=== PATIENT | female | born 1985 | race American Indian/Alaskan Native ===

== ENCOUNTER 2018-09-15 23:28 | Outpatient (CLI) | payer MEDICAID ==
[2018-09-16 00:11] VITALS: BP 122/65
[2018-09-16] MEDS ORDERED: PERCOCET 5/325 PO ONE (01:12)
== END 2018-09-16 01:23 | disposition home or self-care (01) ==
LOC: TRG 23:28
PROVIDERS: ATTEND Obstetrics & Gynecology
DX: O47.1 False labor at or after 37 completed weeks of gestation (principal); O10.013 Pre-existing essential hypertension complicating pregnancy, third trimester; Z3A.39 39 weeks gestation of pregnancy
CPT/HCPCS: 59025

== ENCOUNTER 2018-09-16 07:14 | Inpatient (IN) | payer MEDICAID ==
[2018-09-16] MEDS ORDERED: XYLOCAINE 2% INFILTRATI NR (08:01)
[2018-09-16] MEDS ORDERED: SUBLIMAZE IV PRN (08:01)
[2018-09-16] MEDS ORDERED: BRETHINE SUB-Q PRN (08:01)
[2018-09-16] MEDS ORDERED: BRETHINE IVP PRN (08:01)
[2018-09-16] MEDS ORDERED: LACTATED RINGERS 1,000 ML ONE (08:23)
[2018-09-16 08:30] LABS: Hematocrit 35.1 % (30.3-42.9); Hemoglobin 12.1 gm/dl (10.1-14.3); Mean Corpuscular HGB Conc 34 % (30-34); Mean Corpuscular Volume 93 fl (79-97); Platelet Count 222 K/mm3 (140-440); Red Blood Count 3.79 M/mm3 (3.65-5.03); Red Cell Distribution Width 12.2 % (13.2-15.2)
[2018-09-16] MEDS ORDERED: MINERAL OIL ONE (08:45)
[2018-09-16] MEDS ORDERED: PITOCin/NS 30 UNIT/500ML 30 UNITS/500 ML BAG IV SCH (09:00)
[2018-09-16] MEDS ORDERED: AMPICILLIN/NS 2 GM/100 ML 2 GM/100 ML BAG IV ONE (09:00)
[2018-09-16] MEDS ORDERED: LACTATED RINGERS 1,000 ML IV SCH (09:00)
[2018-09-16] MEDS ORDERED: PITOCin/NS 20 UNIT/1000ML DRIP 20 UNITS/1,000 ML BAG IV SCH ×2 (09:00→13:00)
[2018-09-16] MEDS ORDERED: NARCAN 2 MG/2 ML IV PRN (09:07)
--- NOTE | 2018-09-16 09:07 | Anesthesia Consultation ---
Anesthesia Consult and Med Hx Date of service: 09/16/18 - Airway Anesthetic Teeth Evaluation: Good ROM Head & Neck: Adequate Mental/Hyoid Distance: Adequate Mallampati Class: Class II Intubation Access Assessment: Probably Good - Pre-Operative Health Status ASA Pre-Surgery Classification: ASA2 Proposed Anesthetic Plan: Epidural, Spinal - Pulmonary Hx Asthma: No - Cardiovascular System Hx Hypertension: Yes - Central Nervous System Hx Seizures: No Hx Psychiatric Problems: No - Endocrine Hx Renal Disease: No Hx Hypothyroidism: No Hx Hyperthyroidism: No - Hematic Hx Anemia: No Hx Sickle Cell Disease: No - Other Systems Hx Alcohol Use: No
[2018-09-16] MEDS ORDERED: fentaNYL-BUPIV 2 MCG/ML-0.125% 200 MCG/100 ML BAG EPIDURAL SCH (10:00)
[2018-09-16 12:24] LABS: Bilirubin,Urine NEG (Negative); Blood,Urine SM (Negative); Color,Urine Yellow (Yellow); Mucus,Urine 1+ /HPF; Protein,Urine <15 mg/dL mg/dL (Negative); Urobilinogen,Urine < 2.0 mg/dL (<2.0)
[2018-09-16] MEDS ORDERED: AMPICILLIN/NS 1 GM/50 ML 1 GM/50 ML BAG IV SCH (12:30)
[2018-09-16] MEDS ORDERED: PERCOCET 5/325 PO PRN (12:32)
[2018-09-16] MEDS ORDERED: LANSINOH TP PRN (12:32)
[2018-09-16] MEDS ORDERED: PHENERGAN PO PRN (12:32)
[2018-09-16] MEDS ORDERED: DULCOLAX PR PRN (12:32)
[2018-09-16] MEDS ORDERED: NORCO 5/325 PO PRN (12:32)
[2018-09-16] MEDS ORDERED: MILK OF MAGNESIA PO PRN (12:32)
[2018-09-16] MEDS ORDERED: TORADOL IV PRN (12:32)
[2018-09-16] MEDS ORDERED: TUCKS PAD TP PRN (12:32)
[2018-09-16] MEDS ORDERED: TYLENOL PO PRN (12:32)
[2018-09-16] MEDS ORDERED: PHENERGAN PR PRN (12:32)
[2018-09-16] MEDS ORDERED: ZOFRAN IV PRN (12:32)
[2018-09-16] MEDS ORDERED: BENADRYL PO PRN (12:32)
[2018-09-16 12:35] LABS: Amphetamine Screen,Urine PRESUMPTIVE NEGATIVE; Benzodiazepines Screen,Urine PRESUMPTIVE NEGATIVE; Cannabinoid Screen,Urine PRESUMPTIVE NEGATIVE; Cocaine Screen,Urine PRESUMPTIVE NEGATIVE; Methadone Screen,Urine PRESUMPTIVE NEGATIVE; Opiate Screen,Urine PRESUMPTIVE NEGATIVE
--- NOTE | 2018-09-16 12:41 | History and Physical Report ---
History of Present Illness Date of examination: 09/16/18 Date of admission: 09/16/18 07:58 Chief complaint: contractions History of present illness: This is a 33 yo at 38 weeks came for one appt at 38 weeks. Poor care. Here for contractions. Patient was noted to be 2cm and progressed to 6cm and was admitted. GBS unknown Past History Past Medical History: denies: no pertinent history Past Surgical History: no surgical history Family/Genetic History: diabetes, hypertension Social history: single, smoking. denies: alcohol abuse, prescription drug abuse - Obstetrical History Expected Date of Delivery: 10/02/18 Actual Gestation: 37 Week(s) 5 Day(s) : 3 Para: 2 Hx # Term Pregnancies: 2 Number of Pregnancies: 0 Spontaneous Abortions: 0 Induced : 0 Number of Living Children: 2 Medications and Allergies Allergies Allergy/AdvReac Type Severity Reaction Status Date / Time No Known Allergies Allergy Unverified 09/16/18 01:02 Home Medications Medication Instructions Recorded Confirmed Last Taken Type Ibuprofen [Motrin] 600 mg PO Q8H PRN #30 tablet 09/16/18 Unknown Rx oxyCODONE /ACETAMINOPHEN [Percocet 1 tab PO Q6HR PRN #30 tablet 09/16/18 Unknown Rx 5/325] Active Meds: Active Medications Acetaminophen (Tylenol) 650 mg PO Q4H PRN PRN Reason: Pain MILD(1-3)/Fever >100.5/THOMAS Acetaminophen/Hydrocodone Bitart ([place] 5/325) 2 each PO Q6H PRN PRN Reason: Pain, Moderate (4-6) Bisacodyl (Dulcolax) 10 mg [place] BID PRN PRN Reason: Constipation Diphenhydramine HCl (Benadryl) 25 mg PO Q6H PRN PRN Reason: Itching Diphtheria/Tetanus/Acell Pertussis (Boostrix) 0.5 ml IM .ONCE ONE Stop: 09/17/18 12:33 Docusate Sodium (Colace) 100 mg PO BID ALFREDA Ephedrine Sulfate (Ephedrine Sulfate) 10 mg IV Q2M PRN PRN Reason: Hypotension Fentanyl (Sublimaze) 100 mcg IV Q2H PRN PRN Reason: Labor Pain Last Admin: 09/16/18 08:34 Dose: 100 mcg Documented by: Lactated Ringer's (Lactated Ringers) 1,000 mls @ 125 mls/hr IV DIRECT ALFREDA Last Admin: 09/16/18 08:15 Dose: 125 mls/hr Documented by: Oxytocin/Sodium Chloride (Pitocin/Ns 20 Unit/1000ml Drip) 20 units in 1,000 mls @ 125 mls/hr IV DIRECT ALFREDA Oxytocin/Sodium Chloride (Pitocin/Ns 30 Unit/500ml) 30 units in 500 mls @ 1 mls/hr IV TITR ALFREDA; Protocol Last Admin: 09/16/18 11:07 Dose: 2 milliunits/min, 2 mls/hr Documented by: Fentanyl/Bupivacaine/Sodium Chlor (Fentanyl-Bupiv 2 Mcg/Ml-0.125%) 200 mcg in 100 mls @ 12 mls/hr EPIDURAL TITR ALFREDA; Protocol Last Admin: 09/16/18 10:04 Dose: 12 mls/hr Documented by: Ampicillin Sodium (Ampicillin/Ns 1 Gm/50 Ml) 1 gm in 50 mls @ 100 mls/hr IV Q4H ALFREDA Oxytocin/Sodium Chloride (Pitocin/Ns 20 Unit/1000ml Drip) 20 units in 1,000 mls @ 250 mls/hr IV DIRECT ALFREDA Ibuprofen (Motrin) 600 mg PO Q6H ALFREDA Ketorolac Tromethamine (Toradol) 30 mg IV Q6H PRN PRN Reason: Pain, Moderate (4-6) Stop: 09/21/18 12:31 Lidocaine (Xylocaine 2%) 20 ml INFILTRATI ONCE NR Stop: 09/16/18 13:00 Magnesium Hydroxide (Milk Of Magnesia) 30 ml PO HS PRN PRN Reason: Constipation Measles/Mumps/Rubella Vaccine Live (M-M-R Ii Vaccine) 0.5 ml SUB-Q .ONCE ONE Stop: 09/17/18 12:33 Mineral Oil (Mineral Oil) 30 ml PO QHS PRN PRN Reason: Constipation Multi-Ingredient Ointment (Lansinoh) 1 applic TP PRN PRN PRN Reason: Sore Nipples Multivitamins/Iron/Calcium ( Vitamin) 1 each PO QDAY ALFREDA Naloxone HCl (Narcan 2 Mg/2 Ml) 0.2 mg IV Q5M PRN PRN Reason: Respiratory sedation Ondansetron HCl (Zofran) 4 mg IV Q8H PRN PRN Reason: Nausea And Vomiting Oxycodone/Acetaminophen (Percocet 5/325) 1 tab PO Q6H PRN PRN Reason: Pain, Moderate (4-6) Promethazine HCl (Phenergan) 25 mg WV Q6H PRN PRN Reason: Nausea And Vomiting Promethazine HCl (Phenergan) 25 mg PO Q6H PRN PRN Reason: Nausea And Vomiting Sodium Chloride (Sodium Chloride Flush Syringe 10 Ml) 10 ml IV PRN NR Terbutaline Sulfate (Brethine) 0.25 mg SUB-Q ONCE PRN PRN Reason: Hyperstimulation/Hypertonicity Stop: 09/16/18 16:00 Terbutaline Sulfate (Brethine) 0.25 mg IVP ONCE PRN PRN Reason: Hyperstimulation/Hypertonicity Stop: 09/16/18 16:00 Witch Gainna/Glycerin (Tucks Pad) 1 each TP PRN PRN PRN Reason: Hemorrhoid/cleansing/soothing Review of Systems All systems: negative - Vital Signs Vital signs: Vital Signs Pulse BP 94 H 144/86 09/16/18 07:50 09/16/18 07:50 Temp Pulse Resp BP Pulse Ox 97.2 F L 96 H 20 127/61 93 09/16/18 08:36 09/16/18 12:26 09/16/18 08:36 09/16/18 12:12 09/16/18 12:26 - Physical Exam Abdomen: Positive: normal appearance, soft Genitourinary (Female): Positive: normal external genitalia, normal perenium Vagina: Positive: normal moisture Uterus: Positive: normal size Anus/Rectum: Positive: normal perianal skin Extremities: Positive: normal. Negative: tenderness Deep Tendon Reflex Grade: Normal +2 - Obstetrical FHR: category 1 Cervical Dilatation: 6 Cervical Effacement Percentage: 100 station: +1 Uterine Contraction Pattern: Regular Uterine Tone Measurement Phase: Contraction Uterine Contraction Intensity: Moderate Results Result Diagrams: 09/16/18 08:14 Abnormal lab results 09/16/18 Range/Units 08:14 RDW 12.2 L (13.2-15.2) % All other labs normal. Assessment and Plan A/P HD 1 active labor poor care, limited care GBS unknown offer epidural expect vaginal delivery
--- NOTE | 2018-09-16 12:48 | Procedure Note ---
OB Delivery Note - Delivery Date of Delivery: 09/16/18 Surgeon: SHANNON THOMPSON Estimated blood loss: 100cc - Vaginal Delivery presentation: vertex Delivery position: OA Delivery induction: none Delivery augmentation: pitocin Delivery monitor: external FHT, external uterine Route of delivery: Delivery placenta: spontaneous Delivery cord: 3 umbilical vessels Episiotomy: none Delivery laceration: none Anesthesia: none Delivery comments: Patient was noted to be c/c/ +2 station. She commenced to pushing a viable female infant Apgars 8 and 9 at 1226. Nasophayrnx and oropharynx suctions. No nuchal cord. Shoulders delivered easily. Weight of the baby 6 pounds 5.4 oz . The placenta delivered intact with 3 vessel cord at 1229 . Patient tolerate d procedure well. No lacs noted. Sponge and needle count correct x2. baby and mom bonding well. - A at 1 minute: 8 at 5 minutes: 9 Gender: Female (6 pounds 5.4 oz)
[2018-09-16] MEDS ORDERED: SODIUM CHLORIDE FLUSH SYRINGE 10 ML IV NR (13:00)
[2018-09-16] MEDS: IBUPROFEN PO SCH ×2 (19:25→23:11)
[2018-09-16] MEDS ORDERED: MINERAL OIL PO PRN (22:00)
[2018-09-16] MEDS: COLACE PO SCH (23:12)
[2018-09-17 01:28] LABS: Hematocrit 32.3 % (30.3-42.9); Hemoglobin 11.1 gm/dl (10.1-14.3)
[2018-09-17] MEDS: IBUPROFEN PO SCH ×4 (05:10→23:44)
[2018-09-17] MEDS ORDERED: BOOSTRIX IM ONE (06:00)
[2018-09-17] MEDS ORDERED: M-M-R II VACCINE SUB-Q ONE (06:00)
[2018-09-17] MEDS: COLACE PO SCH ×2 (10:52→23:45)
[2018-09-17] MEDS: PRENATAL VITAMIN PO SCH (10:52)
--- NOTE | 2018-09-17 14:47 | Progress Note ---
Assessment and Plan A/P PPD1 s/p vss routine Pp care d/c home tomorrow Subjective - Subjective Date of service: 09/17/18 Principal diagnosis: s/p Interval history: This is a 33 yo at 38 weeks came for one appt at 38 weeks. Poor care. Here for contractions. Patient was noted to be 2cm and progressed to 6cm and was admitted. GBS unknown Patient reports: appetite normal, voiding normally, pain well controlled, flatus, ambulating normally [place]: doing well Objective - Vital Signs Latest vital signs: Vital Signs Temp Pulse Resp BP BP BP Pulse Ox 09/17/18 09:09 97.3 F L 79 20 119/69 100 09/16/18 23:27 97.3 F L 70 16 115/66 99 09/16/18 20:20 98.1 F 68 16 118/68 97 09/16/18 15:15 98.1 F 69 18 118/68 98 09/16/18 15:12 98.1 F 118/68 - Exam Breasts: Present: normal Cardiovascular: Present: Regular rate, Normal S1 Lungs: Present: Clear to auscultation, Normal air movement Abdomen: Present: normal appearance, soft, normal bowel sounds. Absent: distention, tenderness, guarding Uterus: Present: normal, firm, fundal height below umbilicus. Absent: bogginess, tenderness Extremities: Present: normal Deep Tendon Reflex Grade: Normal +2
[2018-09-17] MEDS ORDERED: DEPO-PROVERA (CONTRACEPTION) IM ONE (14:53)
--- NOTE | 2018-09-17 14:55 | Discharge Summary ---
Providers - Providers Date of Admission: 09/16/18 07:58 Date of discharge: 09/18/18 Attending physician: SAMANTHA MOSES Primary care physician: SAMANTHA MOSES Hospitalization Reason for admission: active labor Delivery: Episiotomy: none Laceration: none Incision: normal, dry, intact Other procedures: none complications: none baby: female Hospital course: unremarkable hospital course. Condition at discharge: Good Disposition: DC-01 TO HOME OR SELFCARE Plan - Discharge Medications Prescriptions: Ibuprofen [Motrin] 600 mg PO Q8H PRN #30 tablet PRN Reason: Pain oxyCODONE /ACETAMINOPHEN [Percocet 5/325] 1 tab PO Q6HR PRN #30 tablet PRN Reason: Pain - Provider Discharge Summary Activity: routine, no sex for 6 weeks, no strenuous exercise Diet: routine Instructions: routine Additional instructions: [] Smoking cessation referral if applicable(refer to patient education folder for contact #) [] Refer to [facility]'s [facility] Booklet Call your doctor immediately for: * Fever > 100.5 * Heavy vaginal bleeding ( >1 pad per hour) * Severe persistent headache * Shortness of breath * Reddened, hot, painful area to leg or breast * Drainage or odor from incision. * Keep incision clean and dry at all times and follow doctor's instructions regarding bathing/showering - Follow up plan Follow up: SAMANTHA MOSES MD [Primary Care Provider] - 10/14/18
[2018-09-18] MEDS: IBUPROFEN PO SCH ×2 (06:20→12:36)
[2018-09-18] MEDS: PRENATAL VITAMIN PO SCH (10:48)
[2018-09-18] MEDS: COLACE PO SCH (10:48)
[2018-09-18 13:38] VITALS: BP 141/67
== END 2018-09-18 16:00 | disposition home or self-care (01) | DRG 774 ==
LOC: TRG 07:14 → LD 07:58 → OB 16:59
PROVIDERS: ADMIT Obstetrics & Gynecology; ATTEND Obstetrics & Gynecology
PROC: 10E0XZZ Delivery of Products of Conception, External Approach (ICD-10-PCS; principal; 2018-09-16)
PROC: 3E0234Z Introduction of Serum, Toxoid and Vaccine into Muscle, Percutaneous Approach (ICD-10-PCS; 2018-09-17)
DX: O16.4 Unspecified maternal hypertension, complicating childbirth (principal); Z3A.38 38 weeks gestation of pregnancy; Z37.0 Single live birth; Z83.3 Family history of diabetes mellitus; Z82.49 Family history of ischemic heart disease and other diseases of the circulatory system; O99.334 Smoking (tobacco) complicating childbirth; F17.200 Nicotine dependence, unspecified, uncomplicated; Z23 Encounter for immunization
CPT/HCPCS: 36415; 59025; 80307; 81001; 85014; 85018; 85027; 86592; 86706; 86762; 86850; 86900; 86901; 87806; 90715; G0378; J0290; J2590; J3010; J7120